=== PATIENT | male | born 1970 | race Hispanic/Latino ===

== ENCOUNTER 2022-03-15 12:22 | Outpatient (CLI) | payer OTHER | END 2022-03-15 12:23 | disposition home or self-care (01) | LOC: ECHO 12:22 | PROVIDERS: ATTEND Psychiatry & Neurology Psychiatry | DX: I08.1 Rheumatic disorders of both mitral and tricuspid valves (principal); R01.1 Cardiac murmur, unspecified | CPT/HCPCS: 93306; C8929 ==